=== PATIENT | female | born 1970 | race Caucasian/White ===

== ENCOUNTER 2017-01-21 01:23 | Emergency (ER) | payer MEDICARE, MEDICAID ==
[2017-01-21 02:15] LABS: BASOPHILS % (AUTO) 0.4 %; EOSINOPHILS # (AUTO) 0.1 10^3/uL (0.0-0.7); EOSINOPHILS % (AUTO) 0.8 %; HCT - HEMATOCRIT 31.1 % (37.0-47.0); HGB - HEMOGLOBIN 10.7 g/dL (12.0-16.0); LYMPHOCYTES # (AUTO) 2.1 10^3/uL (1.5-3.5); LYMPHOCYTES % (AUTO) 19.7 %; MEAN CORPUSCULAR HEMOGLOBIN 31.5 pg (27.0-31.0); MEAN CORPUSCULAR HGB CONC 34.3 g/dL (32.0-36.0); MEAN CORPUSCULAR VOLUME 91.7 fL (81.0-99.0); MEAN PLATELET VOLUME 6.6 fL (7.9-10.8); MONOCYTES # (AUTO) 0.5 10^3/uL (0.0-1.0); MONOCYTES % (AUTO) 4.4 %; NEUTROPHILS # (AUTO) 8.1 10^3/uL (1.5-6.6); NEUTROPHILS % (AUTO) 74.7 %; RED BLOOD COUNT 3.39 10^6/uL (4.20-5.40); RED CELL DISTRIBUTION WIDTH 13.2 % (12.0-15.0); UNCORRECTED WHITE BLOOD COUNT 10.8 x10^3/uL; WHITE BLOOD COUNT 10.8 x10^3/uL (4.8-10.8)
[2017-01-21 02:27] LABS: ALBUMIN/GLOBULIN RATIO 1.2 (1.0-2.2); BILIRUBIN,TOTAL 0.5 mg/dL (0.2-1.0); CALCIUM 8.5 mg/dL (8.5-10.3); CREATININE 0.9 mg/dL (0.4-1.0); POTASSIUM 3.5 mmol/L (3.5-5.0); TOTAL PROTEIN 6.4 g/dL (6.7-8.2)
--- NOTE | 2017-01-21 02:36 | XRAY Preliminary Report ---
Exam: XR CHEST 1 VIEW IMPRESSION: 1. Mild left basilar atelectasis or infiltrate. 2. Mild bronchial wall thickening. This can be seen with bronchitis or reactive airways disease. [facility] SITE ID: [id number]
--- NOTE | 2017-01-21 02:39 | XRAY Report ---
EXAM: CHEST RADIOGRAPHY EXAM DATE: 01/21/2017 02:21 AM. CLINICAL HISTORY: Cough, hemoptysis. COMPARISON: 01/03/2016. TECHNIQUE: 1 view. FINDINGS: Lungs/Pleura: Mild left basilar atelectasis or infiltrate. No pleural effusion seen. No pneumothorax. Mild bronchial wall thickening. Mediastinum: Within exam limitations, the cardiomediastinal contour is normal. Other: None. IMPRESSION: 1. Mild left basilar atelectasis or infiltrate. 2. Mild bronchial wall thickening. This can be seen with bronchitis or reactive airways disease. [facility] Referring Provider Line: [phone] SITE ID: [id number]
[2017-01-21] MEDS ORDERED: AZITHROMYCIN 250 MG TABLET PO STA (03:03)
[2017-01-21] MEDS ORDERED: BENZONATATE 100 MG CAPSULE PO STA (03:03)
--- NOTE | 2017-01-21 03:07 | ED Physician Documentation ---
PD HPI DYSPNEA - Stated complaint Stated Complaint: DIFF BREATHING,COUGHING BLOOD - Chief complaint Chief Complaint: Resp - History obtained from History obtained from: Patient - History of Present Illness Timing - onset: Today Timing - onset during: Exertion Timing - details: Abrupt onset Inciting event(s): URI Associated symptoms: Cough, Hemoptysis. No: Wheezing Similar symptoms before: Work up / diagnostics, Treatment Recently seen: Clinic - Additional information Additional information: Patient is a 46 year old female who has recently been diagnosed with bronchitis who is coming to the emergency department for hemoptysis. Patient states that today she had three episodes of coughing and she coughed up some blood with it. Patient does state that she has a history of blood clots in the distant past. Review of Systems Constitutional: denies: Fever, Chills Eyes: reports: Reviewed and negative Ears: denies: Loss of hearing, Ear pain Nose: reports: Congestion Throat: denies: Sore throat Cardiac: denies: Chest pain / pressure, Palpitations, Calf pain Respiratory: reports: Dyspnea, Cough, Wheezing GI: denies: Nausea, Vomiting : reports: Reviewed and negative Skin: denies: Rash, Lesions Musculoskeletal: denies: Neck pain, Back pain, Extremity pain Neurologic: denies: Generalized weakness, Focal weakness, Syncope Immunocompromised: denies: Immunocompromised PD PAST MEDICAL HISTORY - Past Medical History Past Medical History: Yes Cardiovascular: None Respiratory: Asthma, Pneumonia, Shortness of breath Neuro: Headache/migraine Endocrine/Autoimmune: None GI: GERD : None HEENT: None Psych: Anxiety, Panic attacks, Claustrophobia Musculoskeletal: Osteoarthritis, Chronic back pain Derm: Other - Past Surgical History Past Surgical History: Yes General: Other 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: 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 - Present Medications Home Medications: Ambulatory Orders Medication Instructions Recorded Confirmed oxyCODONE [Roxicodone] 30 mg PO QID PRN 01/30/15 01/04/16 Albuterol Sulfate [Proair Hfa 2 puffs INH Q4H PRN 01/04/16 01/04/16 Inhaler] Montelukast [Singulair] 10 mg PO DAILY 01/04/16 01/04/16 Morphine Sulfate [Ms Contin] 30 mg PO BID 01/04/16 01/04/16 Morphine Sulfate [Ms Contin] 60 mg PO BID 01/04/16 01/04/16 Albuterol 2.5 mg INH RTQ4H PRN #24 neb 01/05/16 Levofloxacin [Levaquin] 500 mg PO DAILY #5 tablet 01/05/16 Prednisone 20 mg PO DAILYWM #12 tablet 01/05/16 Azithromycin 250 mg PO DAILY #4 tablet 01/21/17 Benzonatate [Tessalon Perle] 100 mg PO TID #15 capsule 01/21/17 Codeine Phosphate/Guaifenesin 5 ml PO DAILY PRN #120 ml 01/21/17 [Guaifen-Codeine 100-10 mg/5 ml] - Allergies Allergies/Adverse Reactions: Allergies Allergy/AdvReac Type Severity Reaction Status Date / Time Iodinated Contrast- Oral and Allergy Severe Anaphylaxis Verified 01/03/16 14:59 IV Dye Penicillins Allergy Mild Rash Verified 01/03/16 09:01 - Social History Does the pt smoke?: Yes Smoking Status: Current every day smoker Does the pt drink ETOH?: Yes Does the pt have substance abuse?: No - Immunizations Immunizations are current?: Yes - POLST Patient has POLST: No PD ED PE NORMAL - General General: Alert and oriented X 3, Well developed/nourished - HEENT HEENT: Atraumatic, PERRL - Neck Neck: Supple, no meningeal sign, No JVD - Cardiac Cardiac: RRR, No murmur - Respiratory Respiratory: Clear bilaterally - Abdomen Abdomen: Soft - Derm Derm: Normal color, Warm and dry, No rash - Extremities Extremities: No deformity, Normal ROM s pain, No calf tenderness / cord - Neuro Neuro: Alert and oriented X 3, No motor deficit, No sensory deficit, Normal speech - Psych Psych: Normal mood, Normal affect Results - Vitals Vitals: Vital Signs - 24 hr 01/21/17 01:29 Temperature 36.3 C L Heart Rate 74 Respiratory 20 Rate Blood Pressure 138/72 H O2 Saturation 98 Oxygen O2 Source Room air - Labs Labs: Laboratory Tests 01/21/17 01/21/17 01/21/17 02:09 02:09 02:09 WBC 10.8 RBC 3.39 L Hgb 10.7 L Hct 31.1 L MCV 91.7 MCH 31.5 H MCHC 34.3 RDW 13.2 Plt Count 254 MPV 6.6 L Neut # 8.1 H Lymph # 2.1 Collin # 0.5 Eos # 0.1 Baso # 0.0 Absolute Nucleated RBC 0.00 Nucleated RBC % 0.0 D-Dimer 244.3 Sodium 135 Potassium 3.5 Chloride 98 L Carbon Dioxide 29 Anion Gap 8.0 BUN 22 H Creatinine 0.9 Estimated GFR (MDRD) 67 L Glucose 126 H Calcium 8.5 Total Bilirubin 0.5 AST 38 ALT 56 Alkaline Phosphatase 59 Troponin I Total Protein 6.4 L Albumin 3.5 Globulin 2.9 Albumin/Globulin Ratio 1.2 Lipase 13 L 01/21/17 02:09 WBC RBC Hgb Hct MCV MCH MCHC RDW Plt Count MPV Neut # Lymph # Collin # Eos # Baso # Absolute Nucleated RBC Nucleated RBC % D-Dimer Sodium Potassium Chloride Carbon Dioxide Anion Gap BUN Creatinine Estimated GFR (MDRD) Glucose Calcium Total Bilirubin AST ALT Alkaline Phosphatase Troponin I < 0.04 Total Protein Albumin Globulin Albumin/Globulin Ratio Lipase - Rads (name of study) chest x-ray Radiology: Final report received (atelectasis vs infiltrate) PD MEDICAL DECISION MAKING - ED course Complexity details: reviewed old records, reviewed results, re-evaluated patient , considered differential, d/w patient ED course: Patient was seen and examined at bedside. Patient could not be cleared for pe due to perc due to the hemoptysis and history of blood clots. labs were drawn. chest x-ray was performed and showed questionable pneumonia. Patient's d- dimer was normal for her age. Patient was started on azithromycin and was stable for discharge with outpatient follow up. Departure - Departure Disposition: 01 Home, Self Care Clinical Impression: Bronchitis Condition: Good Instructions: ED Bronchitis Asthmatic Follow-Up: Monika Lawson PA-C [Primary Care Provider] - Within 3 Days Prescriptions: Azithromycin 250 mg PO DAILY #4 tablet Benzonatate [Tessalon Perle] 100 mg PO TID #15 capsule Codeine Phosphate/Guaifenesin [Guaifen-Codeine 100-10 mg/5 ml] 5 ml PO DAILY PRN #120 ml PRN Reason: Cough Comments: Your chest x-ray today showed a possible pneumonia but otherwise your diagnostics were within normal limits. You had your first dose of antibiotics today and will need to take them for the next 4 days. You can take the cough medicine with codeine at night and the tessalon during the day. You should follow up with your doctor if your symptoms persist. You may return to the emergency department at any time for new, worsening or uncontrollable symptoms.
[2017-01-21] MEDS ORDERED: AZITHROMYCIN 250 MG TABLET PO ONE (03:13)
[2017-01-21] MEDS ORDERED: BENZONATATE 100 MG CAPSULE PO ONE (03:13)
[2017-01-21 03:19] VITALS: BP 130/68
== END 2017-01-21 03:20 | disposition home or self-care (01) ==
LOC: ED 01:23
DX: J40 Bronchitis, not specified as acute or chronic (principal); K21.9 Gastro-esophageal reflux disease without esophagitis; M19.90 Unspecified osteoarthritis, unspecified site; F17.200 Nicotine dependence, unspecified, uncomplicated
CPT/HCPCS: 36415; 71010; 80053; 83690; 84484; 85025; 85379; 99283; 99284; A9270

== ENCOUNTER 2017-05-18 20:04 | Emergency (ER) | payer MEDICARE, MEDICAID ==
[2017-05-18 20:11] VITALS: BP 144/98
--- NOTE | 2017-05-18 20:49 | ED Physician Documentation ---
History of Present Illness - Stated complaint Stated Complaint: L LEG PX-SWELLING - Chief complaint Chief Complaint: Ext Problem - History obtained from History obtained from: Patient - History of Present Illness Timing: Yesterday Pain level now: 1 Improved by: no ameliorating factors Worsened by: no exacerbating factors - Additonal information Additional information: c/o LLE swelling with mild pain, symptoms are from left knee and distally. denies trauma, denies h/o similar symptoms. she also denies dyspnea, chest pain Review of Systems Constitutional: denies: Fever Cardiac: denies: Chest pain / pressure Respiratory: denies: Dyspnea Musculoskeletal: reports: Extremity pain, Extremity swelling. 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 - Present Medications Home Medications: Ambulatory Orders Medication Instructions Recorded Confirmed oxyCODONE [Roxicodone] 30 mg PO QID PRN 01/30/15 01/04/16 Albuterol Sulfate [Proair Hfa 2 puffs INH Q4H PRN 01/04/16 01/04/16 Inhaler] Montelukast [Singulair] 10 mg PO DAILY 01/04/16 01/04/16 Morphine Sulfate [Ms Contin] 30 mg PO BID 01/04/16 01/04/16 Morphine Sulfate [Ms Contin] 60 mg PO BID 01/04/16 01/04/16 Albuterol 2.5 mg INH RTQ4H PRN #24 neb 01/05/16 Levofloxacin [Levaquin] 500 mg PO DAILY #5 tablet 01/05/16 predniSONE [Prednisone] 20 mg PO DAILYWM #12 tablet 01/05/16 Azithromycin 250 mg PO DAILY #4 tablet 01/21/17 Benzonatate [Tessalon Perle] 100 mg PO TID #15 capsule 01/21/17 Codeine Phosphate/Guaifenesin 5 ml PO DAILY PRN #120 ml 10/22/17 [Guaifen-Codeine 100-10 mg/5 ml] - Allergies Allergies/Adverse Reactions: Allergies Allergy/AdvReac Type Severity Reaction Status Date / Time Iodinated Contrast- Oral and Allergy Severe Anaphylaxis Verified 05/18/17 20:11 IV Dye Penicillins Allergy Mild Rash Verified 05/18/17 20:11 - Social History Does the pt smoke?: Yes Smoking Status: Current every day smoker Does the pt drink ETOH?: Yes Does the pt have substance abuse?: No - Immunizations Immunizations are current?: Yes - POLST Patient has POLST: No PD ED PE NORMAL - Vitals Vital signs reviewed: Yes - General General: Alert and oriented X 3, No acute distress, Well developed/nourished - Respiratory Respiratory: No respiratory distress - Derm Derm: Normal color, Warm and dry, No rash PD ED PE EXPANDED - Extremities Extremities: Pedal edema L (1+ pitting edema left knee and distally. 2+ left DP and PT pulses, brisk capillary refill in foot/toes on left) Results - Vitals Vitals: Vital Signs - 24 hr 05/18/17 05/18/17 05/19/17 20:09 23:51 00:06 Temperature 36.3 C L Heart Rate 88 80 Respiratory 20 16 17 Rate Blood Pressure 144/98 H O2 Saturation 97 99 Oxygen O2 Source Room air - Labs Labs: Laboratory Tests 05/18/17 05/18/17 21:10 21:10 PT 11.4 INR 1.0 APTT 26.4 Sodium 137 Potassium 3.8 Chloride 99 L Carbon Dioxide 26 Anion Gap 12.0 BUN 11 Creatinine 0.8 Estimated GFR (MDRD) 77 L Glucose 106 H Calcium 8.8 - Rads (name of study) LLE US doppler Radiology: Prelim report reviewed, See rad report PD MEDICAL DECISION MAKING - ED course Complexity details: reviewed results, re-evaluated patient, considered differential, d/w patient Departure - Departure Disposition: 01 Home, Self Care Clinical Impression: Peripheral edema Condition: Good Instructions: ED Leg Swelling Unilateral Follow-Up: Monika Lawson PA-C [Primary Care Provider] - Within 1 week Discharge Date/Time: 05/19/17 00:08
[2017-05-18 21:20] LABS: PT - PROTHROMBIN TIME 11.4 secs (9.9-12.6)
[2017-05-18 21:26] LABS: CALCIUM 8.8 mg/dL (8.5-10.3); CREATININE 0.8 mg/dL (0.4-1.0)
--- NOTE | 2017-05-18 23:05 | Ultrasound Report ---
EXAM: LEFT LOWER EXTREMITY VENOUS ULTRASOUND EXAM DATE: 05/18/2017 10:36 PM. CLINICAL HISTORY: LLE swelling. COMPARISON: None. TECHNIQUE: Real-time sonographic vascular imaging was performed by the material handler loader through the lower extremity utilizing both color-flow and Doppler spectral analysis. Multiple medical collections representative static christopher ges were saved for review. FINDINGS: Common Femoral Vein (CFV): Normal. CFV-GSV Junction: Normal. Profunda Femoral Vein (PFV): Normal. Femoral Vein (FV) Prox: Normal. Femoral Vein (FV) Mid: Normal. Femoral Vein (FV) Dist: Normal. Popliteal Vein: Normal. Posterior Tibial Veins: Normal. Peroneal Veins: Normal. Other: None. IMPRESSION: No evidence for deep venous thrombosis. [facility] Referring Provider Line: [phone] SITE ID: [id number]
--- NOTE | 2017-05-18 23:05 | Ultrasound Preliminary Report ---
Exam: US DUPLEX EXT VEINS LEFT IMPRESSION: No evidence for deep venous thrombosis. [facility] SITE ID: [id number]
== END 2017-05-19 00:08 | disposition home or self-care (01) ==
LOC: ED 20:04
DX: R60.0 Localized edema (principal); J45.909 Unspecified asthma, uncomplicated; F17.200 Nicotine dependence, unspecified, uncomplicated
CPT/HCPCS: 36415; 80048; 85610; 85730; 99283

== ENCOUNTER 2017-10-27 20:13 | Emergency (ER) | payer MEDICARE, MEDICAID ==
[2017-10-27] MEDS ORDERED: ONDANSETRON 4 MG/2 ML VIAL IVP STA (20:30)
[2017-10-27] MEDS ORDERED: LORazepam 2 MG/ML VIAL IVP STA (20:30)
--- NOTE | 2017-10-27 20:40 | ED Physician Documentation ---
PD HPI DYSPNEA - Stated complaint Stated Complaint: SOA/BILAT FEET SWELLING - Chief complaint Chief Complaint: Resp - History of Present Illness Timing - onset: Other (47-year-old woman with history of asthma and some sort of chronic rash on her feet, also chronic back pain maintained on morphine extended release 30 mg twice daily and oxycodone 10 mg 7 times a day. She has had increasing pedal edema over the last days, said months ago she had a DVT scan of the left lower extremity which was negative but now both legs are swollen which actually makes the rash on her feet more painful than normal. She also has more shortness of breath than normal, but does not feel too much more wheezy than normal. She is a heavy smoker and used her inhaler just prior to arrival. She denies any chest pain. There is no possibility of between lack of intercourse and tubal ligation.) Review of Systems Ten Systems: 10 systems reviewed and negative Constitutional: reports: Fatigue. denies: Fever, Chills Cardiac: reports: Pedal edema, Calf pain. 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 - Present Medications Home Medications: Ambulatory Orders Medication Instructions Recorded Confirmed oxyCODONE [Roxicodone] 10 mg PO QID PRN 01/30/15 01/04/16 Albuterol Sulfate [Proair Hfa 2 puffs INH Q4H PRN 01/04/16 01/04/16 Inhaler] Morphine Sulfate [Ms Contin] 30 mg PO BID 01/04/16 01/04/16 Alprazolam [Xanax] 0.5 mg PO TID PRN 10/27/17 10/27/17 Fluticasone/Salmeterol [Advair 2 puffs INH DAILY 10/27/17 10/27/17 500-50 Diskus] Furosemide [Lasix] 20 mg PO DAILY #7 tablet 10/27/17 Potassium Chloride 10 meq PO DAILY #7 tablet.er 10/27/17 - Allergies Allergies/Adverse Reactions: Allergies Allergy/AdvReac Type Severity Reaction Status Date / Time Iodinated Contrast- Oral and Allergy Severe Anaphylaxis Verified 05/18/17 20:11 IV Dye Penicillins Allergy Mild Rash Verified 05/18/17 20:11 - Social History Does the pt smoke?: Yes Smoking Status: Current every day smoker Does the pt drink ETOH?: Yes Does the pt have substance abuse?: No - Immunizations Immunizations are current?: Yes - POLST Patient has POLST: No PD ED PE NORMAL - Vitals Vital signs reviewed: Yes - General General: Alert and oriented X 3, No acute distress - HEENT HEENT: PERRL, EOMI - Neck Neck: Supple, no meningeal sign, No bony TTP - Cardiac Cardiac: RRR, No murmur - Respiratory Respiratory: No respiratory distress, Other (Rhonchorous and wheezy throughout, nonlabored) - Abdomen Abdomen: Normal bowel sounds, Soft, Non tender - Back Back: No CVA TTP, No spinal TTP - Extremities Extremities: Other (Bilateral pitting pedal edema up to mid thigh, she has an odd rash on the top of the feet, it looks more fungal than anything to me with central clearing and multiple wax, she says it is not fungal. She says it is autoimmune has tried dapsone in the past and steroids do not help.) - Neuro Neuro: Alert and oriented X 3, Normal speech - Psych Psych: Normal mood, Normal affect Results - Vitals Vitals: Vital Signs - 24 hr 10/27/17 20:17 Temperature 36.1 C L Heart Rate 80 Respiratory 19 Rate Blood Pressure 125/83 H O2 Saturation 98 Oxygen O2 Source Room air - EKG (time done) 2036 Rate: Rate (enter#) (75) Rhythm: NSR Fluker: Normal Intervals: Normal RI QRS: Low voltage Ischemia: Non specific changes (sub-mm ZOE inferior, concave, nondiagnostic, no priors.) Computer interpretation: Agree with computer - Labs Labs: Laboratory Tests 10/27/17 10/27/17 10/27/17 20:40 20:40 20:40 WBC 6.1 RBC 4.00 L Hgb 12.8 Hct 37.2 MCV 93.0 MCH 32.0 H MCHC 34.4 RDW 13.1 Plt Count 267 MPV 7.5 L Neut # (Auto) 3.4 Lymph # (Auto) 2.1 Fleming # (Auto) 0.5 Eos # (Auto) 0.2 Baso # (Auto) 0.0 Absolute Nucleated RBC 0.00 Nucleated RBC % 0.0 Sodium 138 Potassium 3.8 Chloride 100 L Carbon Dioxide 30 Anion Gap 8.0 BUN 11 Creatinine 0.9 Estimated GFR (MDRD) 67 L Glucose 101 H Calcium 9.0 Total Bilirubin 0.6 AST 35 ALT 49 Alkaline Phosphatase 58 Troponin I < 0.04 Total Protein 6.8 Albumin 3.5 Globulin 3.3 Albumin/Globulin Ratio 1.1 Lipase 20 L - Rads (name of study) 2v chest Radiology: EMP read contemporaneously (normal) BLE DVT scan Radiology: Prelim report reviewed (no dvt) PD MEDICAL DECISION MAKING - ED course ED course: 47-year-old woman bilateral pedal edema in the setting of underlying asthma and some sort of unclear rash that has been treated by dermatology in the past. I presume some sort of autoimmune issue given that she, but I am not sure. Either way that is a chronic issue. She presents with bilateral pedal edema and pain from same as well as shortness of breath. She is not wheezing. Differential diagnosis would include renal failure, congestive heart failure, DVT, or other nonspecific fluid retention. Workup was undertaken and there is no evidence of cardiac dysfunction, DVT, or renal dysfunction. She was treated with Lasix here. She was having a lot of anxiety which treated with initially with Ativan and Zofran for Nausea which was also followed by Phenergan. She had a lot of pain from the ultrasound and was given a dose of morphine which is not unreasonable given that she is probably laid on her chronic pain medications which are fairly high in dose anyway.The pedal edema was treated with a dose of Lasix here. Primary care follow-up was advised. - Sepsis Event Vital Signs: Vital Signs - 24 hr 10/27/17 20:17 Temperature 36.1 C L Heart Rate 80 Respiratory 19 Rate Blood Pressure 125/83 H O2 Saturation 98 Oxygen O2 Source Room air Departure - Departure Disposition: 01 Home, Self Care Clinical Impression: Peripheral edema Back pain Qualifiers: Back pain location: low back pain Chronicity: chronic Back pain laterality: bilateral Sciatica presence: unspecified whether sciatica present Qualified Code (s): M54.5 - Low back pain; G89.29 - Other chronic pain; G89.29 - Other chronic pain Dyspnea Qualifiers: Dyspnea type: dyspnea on exertion Qualified Code(s): R06.09 - Other forms of dyspnea Condition: Good Record reviewed to determine appropriate education?: Yes Instructions: ED Dyspnea Shortness of Breath, ED Edema Legs Bilateral Prescriptions: Furosemide [Lasix] 20 mg PO DAILY #7 tablet Potassium Chloride 10 meq PO DAILY #7 tablet.er Comments: Continue your current medications. On any day that you feel like you need to take some water off your legs you can take a dose of the Lasix, on any day that you take the Lasix, take the potassium supplement. Call your doctor on Sunday to arrange an expedited follow-up appointment. Return if worse or if new symptoms develop.
[2017-10-27 20:52] LABS: BASOPHILS % (AUTO) 0.6 %; EOSINOPHILS # (AUTO) 0.2 10^3/uL (0.0-0.7); EOSINOPHILS % (AUTO) 3.5 %; HGB - HEMOGLOBIN 12.8 g/dL (12.0-16.0); LYMPHOCYTES # (AUTO) 2.1 10^3/uL (1.5-3.5); LYMPHOCYTES % (AUTO) 33.5 %; MEAN CORPUSCULAR HGB CONC 34.4 g/dL (32.0-36.0); MEAN PLATELET VOLUME 7.5 fL (7.9-10.8); MONOCYTES # (AUTO) 0.5 10^3/uL (0.0-1.0); MONOCYTES % (AUTO) 7.6 %; NEUTROPHILS # (AUTO) 3.4 10^3/uL (1.5-6.6); NEUTROPHILS % (AUTO) 54.8 %; PLT - PLATELET COUNT 267 10^3/uL (130-450); RED CELL DISTRIBUTION WIDTH 13.1 % (12.0-15.0); WHITE BLOOD COUNT 6.1 x10^3/uL (4.8-10.8)
[2017-10-27 21:02] LABS: ALBUMIN 3.5 g/dL (3.2-5.5); ALBUMIN/GLOBULIN RATIO 1.1 (1.0-2.2); BILIRUBIN,TOTAL 0.6 mg/dL (0.2-1.0); CREATININE 0.9 mg/dL (0.4-1.0); TOTAL PROTEIN 6.8 g/dL (6.7-8.2)
--- NOTE | 2017-10-27 21:04 | XRAY Report ---
Procedure Date: 10/27/2017 Accession Number: [id number] / [id number] Procedure: XR - Chest 2 View X-Ray CPT Code: 92014 FULL RESULT: EXAM: CHEST RADIOGRAPHY EXAM DATE: 10/27/2017 08:49 PM. CLINICAL HISTORY: Dyspnea. COMPARISON: 01/31/2016 and 01/03/2016. TECHNIQUE: 2 views. FINDINGS: Lungs/Pleura: No focal opacities evident. No pleural effusion. No pneumothorax. Normal volumes. Mediastinum: Heart and mediastinal contours are unremarkable. Other: None. IMPRESSION: Normal 2-view chest radiography. [facility]
[2017-10-27] MEDS ORDERED: FUROSEMIDE 20 MG/2 ML VIAL IVP STA (21:31)
[2017-10-27] MEDS ORDERED: PROMETHAZINE INJ 12.5 MG in SODIUM CHLORIDE 0.9% 50 ML IV STA (21:31)
[2017-10-27] MEDS ORDERED: MORPHINE 10 MG/ML VIAL IVP STA (22:53)
--- NOTE | 2017-10-27 23:00 | Ultrasound Report ---
Procedure Date: 10/27/2017 Accession Number: [id number] / [id number] Procedure: US - Duplex Ext Veins Bilateral CPT Code: FULL RESULT: EXAM: BILATERAL LOWER EXTREMITY VENOUS ULTRASOUND EXAM DATE: 10/27/2017 10:44 PM. CLINICAL HISTORY: Leg swelling. COMPARISON: None. TECHNIQUE: Real-time sonographic vascular imaging was performed by the child support specialist through the lower extremities utilizing both color-flow and Doppler spectral analysis. Multiple tour sales representative static images were saved for review. FINDINGS: Right: Common Femoral Vein (CFV): Normal. CFV-GSV Junction: Normal. Profunda Femoral Vein (PFV): Normal. Femoral Vein (FV) Prox: Normal. Femoral Vein (FV) Mid: Normal. Femoral Vein (FV) Dist: Normal. Popliteal Vein: Normal. Posterior Tibial Veins: Normal. Peroneal Veins: Normal. Left: Common Femoral Vein (CFV): Normal. CFV-GSV Junction: Normal. Profunda Femoral Vein (PFV): Normal. Femoral Vein (FV) Prox: Normal. Femoral Vein (FV) Mid: Normal. Femoral Vein (FV) Dist: Normal. Popliteal Vein: Normal. Posterior Tibial Veins: Normal. Peroneal Veins: Normal. Other: Veins are suboptimally seen due to edema. Left popliteal fossa cyst measuring 4.5 x 1.1 x 1.2 cm. IMPRESSION: 1. No evidence for deep venous thrombosis bilaterally. 2. Left popliteal fossa cyst measuring 4.5 x 1.1 x 1.2 cm. [facility]
[2017-10-27 23:48] VITALS: BP 138/82
== END 2017-10-27 23:59 | disposition home or self-care (01) ==
LOC: ED 20:13
DX: R60.9 Edema, unspecified (principal); M54.5 Low back pain; G89.29 Other chronic pain; R06.09 Other forms of dyspnea; Z79.891 Long term (current) use of opiate analgesic
CPT/HCPCS: 36415; 71046; 80053; 83690; 84484; 85025; 93005; 93970; 96365; 96375; 99283; 99284; J2060; J7040

== ENCOUNTER 2018-01-10 11:19 | Emergency (ER) | payer MEDICARE, MEDICAID ==
--- NOTE | 2018-01-10 13:03 | ED Physician Documentation ---
PD HPI NVD - Stated complaint Stated Complaint: VOMITING/ANXIETY - Chief complaint Chief Complaint: Abd Pain - History obtained from History obtained from: Patient - History of Present Illness Timing - onset: Today Timing - duration: Days (1) Timing - details: Abrupt onset (onset of nausea and vomiting couple hours after starting Clindamycin for dental infection last evening. Persistent N/V into today. Unable to take usual pain meds today as well, so hurting all over, loreto in back.) Associated symptoms: Abdominal pain (upper abd), Loss of appetite. No: Fever, Near syncope / syncope Contributing factors: Recent antibiotics (clindamycin yesterday for dental infection). No: Sick contact, Bad food Improved by: No: Eating, Vomiting Worsened by: Eating Similar symptoms before: Has not had sx before Recently seen: Clinic (for tooth pain, and Rx Clindamycin.) Review of Systems Constitutional: reports: Myalgias. denies: Fever, Chills Nose: denies: Rhinorrhea / runny nose, Congestion Throat: denies: Sore throat Respiratory: denies: Cough GI: reports: Abdominal Pain, Nausea, Vomiting. denies: Diarrhea, Hematemesis, Bloody / black stool : denies: Dysuria, Frequency Skin: denies: Rash Musculoskeletal: reports: Back pain (chronic). 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: Tubal ligation - Present Medications Home Medications: Ambulatory Orders Medication Instructions Recorded Confirmed oxyCODONE [Roxicodone] 10 mg PO QID PRN 01/30/15 01/04/16 Albuterol Sulfate [Proair Hfa 2 puffs INH Q4H PRN 01/04/16 01/04/16 Inhaler] Morphine Sulfate [Ms Contin] 30 mg PO BID 01/04/16 01/04/16 Alprazolam [Xanax] 0.5 mg PO TID PRN 10/27/17 10/27/17 Fluticasone/Salmeterol [Advair 2 puffs INH DAILY 10/27/17 10/27/17 500-50 Diskus] Furosemide [Lasix] 20 mg PO DAILY #7 tablet 10/27/17 Potassium Chloride 10 meq PO DAILY #7 tablet.er 10/27/17 Cephalexin [Keflex] 500 mg PO TID #20 capsule 01/10/18 Ondansetron Odt [Zofran] 4 mg TL Q6H PRN #15 tablet 01/10/18 - Allergies Allergies/Adverse Reactions: Allergies Allergy/AdvReac Type Severity Reaction Status Date / Time Iodinated Contrast- Oral and Allergy Severe Anaphylaxis Verified 01/10/18 11:26 IV Dye Penicillins Allergy Mild Rash Verified 01/10/18 11:26 - Social History Does the pt smoke?: Yes Smoking Status: Current every day smoker Does the pt drink ETOH?: Yes Does the pt have substance abuse?: No - Immunizations Immunizations are current?: Yes - POLST Patient has POLST: No PD ED PE NORMAL - Vitals Vital signs reviewed: Yes - General General: Alert and oriented X 3, Well developed/nourished, Other (active emesis in ER. Appears uncomfortable. ) - HEENT HEENT: Pharynx benign. No: Dentition benign (right upper tooth with caries and some mild gum swelling. No fluctuance. ) - Neck Neck: Supple, no meningeal sign, No adenopathy - Cardiac Cardiac: RRR, No murmur - Respiratory Respiratory: Clear bilaterally - Abdomen Abdomen: Normal bowel sounds, Soft, Non distended, No organomegaly, Other (Tender epigastric area, no general guarding nor percussion tender. ) - Female Female : Deferred - Rectal Rectal: Deferred - Back Back: No CVA TTP - Derm Derm: Normal color, Warm and dry - Neuro Neuro: Alert and oriented X 3, No motor deficit, Normal speech Results - Vitals Vitals: Vital Signs - 24 hr 01/10/18 11:23 Temperature 36.5 C Heart Rate 78 Respiratory 20 Rate Blood Pressure 102/44 L O2 Saturation 98 Oxygen O2 Source Room air PD MEDICAL DECISION MAKING - ED course Complexity details: reviewed results, re-evaluated patient (improved with fluids and antiemetics. Gave IV pain meds for general pains and back pain. She had not had her MS 30 mg dose this morning, and so is catching up with even that. ), considered differential, d/w patient Departure - Departure Disposition: 01 Home, Self Care Clinical Impression: Medication side effect Nausea and vomiting Qualifiers: Vomiting type: unspecified Vomiting Intractability: non-intractable Qualified Code(s): R11.2 - Nausea with vomiting, unspecified Condition: Stable Record reviewed to determine appropriate education?: Yes Instructions: ED Nausea Vomiting Follow-Up: Destin Verma DO [Primary Care Provider] - Prescriptions: Cephalexin [Keflex] 500 mg PO TID #20 capsule Ondansetron Odt [Zofran] 4 mg TL Q6H PRN #15 tablet PRN Reason: Nausea / Vomiting Comments: Continue usual medications. Ondansetron if needed for nausea. Stop the recent clindamycin for the dental infection as this likely was causing your nausea and vomiting. Your given a dose IV antibiotics today so you do not need to take any new antibiotic until tomorrow. At that point start cephalexin 3 times a day for a week for the dental infection. Tylenol if needed for pains. Discharge Date/Time: 01/10/18 16:26
[2018-01-10] MEDS ORDERED: SODIUM CHLORIDE 0.9% 1,000 ML IV ONE ×2 (13:17)
[2018-01-10] MEDS ORDERED: MORPHINE 10 MG/ML VIAL IVP STA ×2 (13:17→14:30)
[2018-01-10] MEDS ORDERED: ONDANSETRON 4 MG/2 ML VIAL IVP STA (13:17)
[2018-01-10] MEDS ORDERED: FAMOTIDINE 20 MG/2 ML VIAL IVP STA (13:17)
[2018-01-10] MEDS ORDERED: HALOPERIDOL 5 MG/ML VIAL IVP ONE (14:30)
[2018-01-10 14:40] LABS: BASOPHILS % (AUTO) 0.4 %; HGB - HEMOGLOBIN 15.7 g/dL (12.0-16.0); LYMPHOCYTES # (AUTO) 0.7 10^3/uL (1.5-3.5); LYMPHOCYTES % (AUTO) 6.4 %; MEAN CORPUSCULAR HEMOGLOBIN 30.6 pg (27.0-31.0); MEAN CORPUSCULAR HGB CONC 33.1 g/dL (32.0-36.0); MEAN CORPUSCULAR VOLUME 92.4 fL (81.0-99.0); MEAN PLATELET VOLUME 7.2 fL (7.9-10.8); MONOCYTES # (AUTO) 0.1 10^3/uL (0.0-1.0); MONOCYTES % (AUTO) 1.1 %; NEUTROPHILS # (AUTO) 10.6 10^3/uL (1.5-6.6); NEUTROPHILS % (AUTO) 92.1 %; PLT - PLATELET COUNT 306 10^3/uL (130-450); RED BLOOD COUNT 5.11 10^6/uL (4.20-5.40); RED CELL DISTRIBUTION WIDTH 13.2 % (12.0-15.0); WHITE BLOOD COUNT 11.5 x10^3/uL (4.8-10.8)
[2018-01-10 14:49] LABS: ALBUMIN 4.5 g/dL (3.2-5.5); ALBUMIN/GLOBULIN RATIO 1.3 (1.0-2.2); BILIRUBIN,TOTAL 0.5 mg/dL (0.2-1.0); CREATININE 1.1 mg/dL (0.4-1.0)
[2018-01-10] MEDS ORDERED: cefTRIAXone 500 MG VIAL IVP STA (15:18)
[2018-01-10] MEDS ORDERED: HYDROmorphone 2 MG/ML VIAL IVP STA (15:38)
[2018-01-10 16:27] VITALS: BP 111/44
== END 2018-01-10 16:26 | disposition home or self-care (01) ==
LOC: ED 11:19
DX: T36.8X1A Poisoning by other systemic antibiotics, accidental (unintentional), initial encounter (principal); R11.2 Nausea with vomiting, unspecified; F17.200 Nicotine dependence, unspecified, uncomplicated
CPT/HCPCS: 36415; 80053; 83690; 85025; 96361; 96374; 96375; 96376; 99283; 99284; J1170

== ENCOUNTER 2018-02-24 10:15 | Emergency (ER) | payer MEDICARE, MEDICAID ==
[2018-02-24] MEDS ORDERED: oxyCODONE 5 MG TABLET PO STA (11:43)
[2018-02-24] MEDS ORDERED: ALBUTEROL NEB 2.5 MG/3 ML INH STA ×2 (11:43→12:57)
[2018-02-24] MEDS ORDERED: DEXAMETHASONE 10 MG/ML VIAL PO STA (11:43)
--- NOTE | 2018-02-24 11:54 | ED Physician Documentation ---
History of Present Illness - Stated complaint Stated Complaint: CONGESTION/COUGH - Chief complaint Chief Complaint: Resp - Additonal information Additional information: hx from pt 47 f hx asthma recent productive cough wheezing SOA feels like she has pna no fever but has had pna s fever before no leg swelling no long distance travel using [employer] q 1h at home all the coughing has worsened her chronic LBP and she did not take her AM long acting morphine Review of Systems Constitutional: denies: Fever, Chills Cardiac: reports: Chest pain / pressure Respiratory: reports: Dyspnea, Cough GI: denies: Abdominal Pain, Nausea, Vomiting Musculoskeletal: denies: Extremity swelling Endocrine: denies: Easy bruising / bleeding Immunocompromised: denies: Immunocompromised PD PAST MEDICAL HISTORY - Past Medical History Past Medical History: Yes Cardiovascular: None Respiratory: Asthma, Pneumonia, Shortness of breath Neuro: None Endocrine/Autoimmune: None GI: GERD UNDERGRADUATE INTERN: None : None HEENT: None Psych: Anxiety, Panic attacks, Claustrophobia Musculoskeletal: Osteoarthritis, Chronic back pain Derm: Other - Past Surgical History Past Surgical History: Yes General: Other Ortho: Carpal Tunnel surgery, Spine surgery /UNDERGRADUATE INTERN: Tubal ligation - Present Medications Home Medications: Ambulatory Orders Medication Instructions Recorded Confirmed oxyCODONE [Roxicodone] 10 mg PO QID PRN 01/30/15 01/04/16 Albuterol Sulfate [Proair Hfa 2 puffs INH Q4H PRN 01/04/16 01/04/16 Inhaler] Morphine Sulfate [Ms Contin] 30 mg PO BID 01/04/16 01/04/16 Alprazolam [Xanax] 0.5 mg PO TID PRN 10/27/17 10/27/17 Fluticasone/Salmeterol [Advair 2 puffs INH DAILY 10/27/17 10/27/17 500-50 Diskus] Albuterol 2.5 mg INH Q4H PRN #30 neb 02/24/18 Albuterol Sulfate [Proair Hfa 2 puffs INH Q4H PRN #1 inhaler 02/24/18 Inhaler] Benzonatate [Tessalon Perle] 100 mg PO TID PRN #20 capsule 02/24/18 guaiFENesin/DEXTROMETHORPHAN 10 ml PO Q6H PRN #120 ml 11/25/18 [Robitussin Dm] predniSONE [Deltasone] 60 mg PO DAILY 5 Days #15 tablet 02/24/18 - Allergies Allergies/Adverse Reactions: Allergies Allergy/AdvReac Type Severity Reaction Status Date / Time Iodinated Contrast- Oral and Allergy Severe Anaphylaxis Verified 01/10/18 11:26 IV Dye Penicillins Allergy Mild Rash Verified 01/10/18 11:26 - Social History Does the pt smoke?: Yes Smoking Status: Current every day smoker Does the pt drink ETOH?: No Does the pt have substance abuse?: No Substance Use and Type: Marijuana - Immunizations Immunizations are current?: Yes - POLST Patient has POLST: No PD ED PE NORMAL - Vitals Vital signs reviewed: Yes - Neck Neck: Supple, no meningeal sign - Cardiac Cardiac: RRR - Respiratory Respiratory: Other (ronchi and wheeze jessica) - Abdomen Abdomen: Soft, Non tender - Derm Derm: Normal color - Extremities Extremities: No edema, No calf tenderness / cord - Neuro Neuro: Alert and oriented X 3 Eye Opening: Spontaneous Motor: Obeys Commands Verbal: Oriented GCS Score: 15 Results - Vitals Vitals: Vital Signs - 24 hr 02/24/18 02/24/18 02/24/18 10:22 12:30 13:20 Temperature 36.6 C Heart Rate 57 L 62 77 Respiratory 20 16 18 Rate Blood Pressure 113/82 H 109/67 O2 Saturation 97 98 02/24/18 02/24/18 13:25 13:50 Temperature 36.4 C L Heart Rate 78 82 Respiratory 16 24 Rate Blood Pressure 137/62 H O2 Saturation 96 Oxygen O2 Source Room air - Labs Labs: Laboratory Tests 02/24/18 12:04 Influenza A (Rapid) Negative Influenza B (Rapid) Negative PD MEDICAL DECISION MAKING - ED course ED course: after steroids and 6 nebs pt is clear Departure - Departure Disposition: 01 Home, Self Care Clinical Impression: Asthma exacerbation Qualifiers: Asthma severity: severe Asthma persistence: unspecified Qualified Code(s): J45.901 - Unspecified asthma with (acute) exacerbation Condition: Good Instructions: ED Bronchitis Asthmatic Prescriptions: Albuterol 2.5 mg INH Q4H PRN #30 neb PRN Reason: Wheezing Albuterol Sulfate [Proair Hfa Inhaler] 2 puffs INH Q4H PRN #1 inhaler PRN Reason: Shortness Of Air/Wheezing Benzonatate [Tessalon Perle] 100 mg PO TID PRN #20 capsule PRN Reason: Cough guaiFENesin/DEXTROMETHORPHAN [Robitussin Dm] 10 ml PO Q6H PRN #120 ml PRN Reason: Cough predniSONE [Deltasone] 60 mg PO DAILY 5 Days #15 tablet Comments: The xray does not show pneumonia and your flu swab was negative So this is likely a viral process aggravating your asthma Recommend taking a steroid for 5 days, using your albuterol every 4 h for the next 3 days then as needed and cough medication as needed Avoid smoke Follow up with your PMD for a recheck this week Return if worse Forms: Activity restrictions
--- NOTE | 2018-02-24 12:04 | XRAY Report ---
Reason: cough Procedure Date: 02/24/2018 Accession Number: [id number] / [id number] Procedure: XR - Chest 2 View X-Ray CPT Code: 31905 FULL RESULT: EXAM: CHEST RADIOGRAPHY EXAM DATE: 02/24/2018 11:54 AM. CLINICAL HISTORY: Cough. COMPARISON: CHEST 2 VIEW 10/27/2017 8:44 PM CHEST 2 VIEW PA/LAT 01/03/2016 10:11 AM. TECHNIQUE: 2 views. FINDINGS: Lungs/Pleura: No focal opacities evident. No pleural effusion. No pneumothorax. Normal volumes. Mediastinum: Heart and mediastinal contours are unremarkable. Other: There are mild degenerative disk changes of the thoracic spine. IMPRESSION: No focal pulmonary consolidation. No acute cardiopulmonary abnormality. RADIA
[2018-02-24 13:51] VITALS: BP 137/62
== END 2018-02-24 14:34 | disposition home or self-care (01) ==
LOC: ED 10:15
DX: J45.901 Unspecified asthma with (acute) exacerbation (principal); F17.200 Nicotine dependence, unspecified, uncomplicated
CPT/HCPCS: 71046; 87275; 87276; 94640; 99283; A9270

== ENCOUNTER 2018-09-15 19:54 | Outpatient (CLI) | payer MEDICAID, MEDICARE | END 2018-09-15 19:55 | disposition critical access hospital (66) | LOC: EMS 19:54 | PROVIDERS: ATTEND Surgery | DX: R45.89 Other symptoms and signs involving emotional state (principal); F41.9 Anxiety disorder, unspecified | CPT/HCPCS: A0425; A0429 ==

== ENCOUNTER 2018-09-15 20:13 | Emergency (ER) | payer MEDICAID, MEDICARE ==
--- NOTE | 2018-09-15 21:17 | ED Physician Documentation ---
PD HPI MHE - Stated complaint Stated Complaint: SI, ANXIETY - Chief complaint Chief Complaint: MHE - History obtained from History obtained from: Patient - History of Present Illness Primary symptom: Suicidal ideation, Anxiety (ran out of her Xanax few days ago (gets 42 every 2 weeks, but was taking more than 3 daily). Feeling more stressed recently. Suicidal ideation but not wanting to hurt herself as she says she had her daughter (Alicia) to take care of.). No: Suicide attempt Timing - onset: How many days ago (last coule days, having worse anxiety and tearfulness.) Contributing factors: Family, Out of meds Similar symptoms before: Diagnosis (depression, anxiety, chronic back pain) Recently seen: Clinic Review of Systems Constitutional: reports: Fatigue. denies: Fever, Chills, Myalgias Nose: denies: Rhinorrhea / runny nose, Congestion Throat: denies: Sore throat Respiratory: denies: Cough GI: denies: Nausea, Vomiting, Diarrhea Musculoskeletal: reports: Back pain (chronic) Psychiatric: reports: Depressed, Suicidal (ideation but no attempt. no plan.), Anxiety, Insomnia. 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 - Present Medications Home Medications: Ambulatory Orders Medication Instructions Recorded Confirmed oxyCODONE [Roxicodone] 10 mg PO QID PRN 01/30/15 01/04/16 Albuterol Sulfate [Proair Hfa 2 puffs INH Q4H PRN 01/04/16 01/04/16 Inhaler] Morphine Sulfate [Ms Contin] 30 mg PO BID 01/04/16 01/04/16 Alprazolam [Xanax] 0.5 mg PO TID PRN 10/27/17 10/27/17 Fluticasone/Salmeterol [Advair 2 puffs INH DAILY 10/27/17 10/27/17 500-50 Diskus] Albuterol 2.5 mg INH Q4H PRN #30 neb 02/24/18 Albuterol Sulfate [Proair Hfa 2 puffs INH Q4H PRN #1 inhaler 02/24/18 Inhaler] Benzonatate [Tessalon Perle] 100 mg PO TID PRN #20 capsule 02/24/18 guaiFENesin/DEXTROMETHORPHAN 10 ml PO Q6H PRN #120 ml 02/24/18 [Robitussin Dm] predniSONE [Deltasone] 60 mg PO DAILY 5 Days #15 tablet 02/24/18 ALPRAZolam [Alprazolam] 0.5 mg PO TID PRN #15 tablet 09/15/18 - Allergies Allergies/Adverse Reactions: Allergies Allergy/AdvReac Type Severity Reaction Status Date / Time Iodinated Contrast- Oral and Allergy Severe Anaphylaxis Verified 09/15/18 20:25 IV Dye Penicillins Allergy Mild Rash Verified 09/15/18 20:25 - Social History Does the pt smoke?: Yes Smoking Status: Current every day smoker Does the pt drink ETOH?: No Does the pt have substance abuse?: Yes Substance Use and Type: Marijuana - Immunizations Immunizations are current?: Yes - POLST Patient has POLST: No PD ED PE NORMAL - Vitals Vital signs reviewed: Yes - General General: Alert and oriented X 3, Well developed/nourished, Other (seems in pain due to back, anxious and some shaky, and tearful. ) - Neck Neck: Supple, no meningeal sign, No adenopathy - Cardiac Cardiac: RRR, No murmur - Respiratory Respiratory: Clear bilaterally - Derm Derm: Normal color, Warm and dry - Extremities Extremities: No tenderness to palpate, Normal ROM s pain - Neuro Neuro: Alert and oriented X 3, No motor deficit, Normal speech - Psych Psych: No: Normal mood (depressed, tearful and anxious.) Results - Vitals Vitals: Oxygen O2 Source Room air - Labs Labs: Laboratory Tests 09/15/18 09/15/18 09/15/18 22:00 22:00 22:00 WBC 12.1 H RBC 5.10 Hgb 15.2 Hct 45.7 MCV 89.6 MCH 29.8 MCHC 33.2 RDW 13.7 Plt Count 376 MPV 6.9 L Neut # (Auto) 8.4 H Lymph # (Auto) 3.0 Redwood # (Auto) 0.5 Eos # (Auto) 0.1 Baso # (Auto) 0.1 Absolute Nucleated RBC 0.00 Nucleated RBC % 0.0 Sodium 137 Potassium 3.4 L Chloride 104 Carbon Dioxide 21 Anion Gap 12.0 BUN 24 H Creatinine 1.0 Estimated GFR (MDRD) 59 L Glucose 105 H Calcium 9.4 Total Bilirubin 1.2 H AST 16 ALT 24 Alkaline Phosphatase 61 Total Protein 8.1 Albumin 4.6 Globulin 3.5 Albumin/Globulin Ratio 1.3 Lipase 32 TSH 2.36 Salicylates < 6.0 Acetaminophen < 10 L Ethyl Alcohol < 5.0 PD MEDICAL DECISION MAKING - ED course Complexity details: reviewed results, considered differential (chronic depression. Anxiety is worse being out of Xanax for few days. Feeling better with IV meds. She states she is not wanting to hurt herself, has her daughter (Alicia) to take care of, but with some suicidal ideation at times. Does not get counseling currently. I suggest that. Friend is with her, who does express concern about excess med use (which is why she ran out few days ago, gets 42 every 2 weeks, so 3 daily).), d/w patient Departure - Departure Disposition: 01 Home, Self Care Clinical Impression: Anxiety and depression Chronic back pain Qualifiers: Back pain location: low back pain Back pain laterality: unspecified Sciatica presence: unspecified whether sciatica present Qualified Code(s): M54.5 - Low back pain Condition: Stable Record reviewed to determine appropriate education?: Yes Instructions: ED Depression Follow-Up: Destin Verma DO [Primary Care Provider] - Prescriptions: ALPRAZolam [Alprazolam] 0.5 mg PO TID PRN #15 tablet PRN Reason: Anxiety Comments: Continue your usual medications. Seek counselling to help with your depression. Follow up with your PMD in the next few days for further prescription medications. I wrote a prescription for 5 days of your Xanax, to help with your anxiety until you can see your PMD. I think much of your symptoms today were an element of withdrawal/rebound of anxiety, due to running out of meds. Discharge Date/Time: 09/15/18 23:57
[2018-09-15] MEDS ORDERED: KETOROLAC 30 MG/ML VIAL IVP STA (21:46)
[2018-09-15] MEDS ORDERED: LORazepam 2 MG/ML VIAL IVP STA ×2 (21:46→23:22)
[2018-09-15] MEDS ORDERED: SODIUM CHLORIDE 0.9% 1,000 ML IV ONE (21:46)
[2018-09-15] MEDS ORDERED: MORPHINE 10 MG/ML VIAL IVP STA ×2 (21:46→23:22)
[2018-09-15 22:08] LABS: BASOPHILS # (AUTO) 0.1 10^3/uL (0.0-0.1); BASOPHILS % (AUTO) 1.1 %; EOSINOPHILS # (AUTO) 0.1 10^3/uL (0.0-0.7); EOSINOPHILS % (AUTO) 0.6 %; HGB - HEMOGLOBIN 15.2 g/dL (12.0-16.0); LYMPHOCYTES % (AUTO) 24.9 %; MEAN CORPUSCULAR HEMOGLOBIN 29.8 pg (27.0-31.0); MEAN CORPUSCULAR HGB CONC 33.2 g/dL (32.0-36.0); MEAN CORPUSCULAR VOLUME 89.6 fL (81.0-99.0); MEAN PLATELET VOLUME 6.9 fL (7.9-10.8); MONOCYTES # (AUTO) 0.5 10^3/uL (0.0-1.0); MONOCYTES % (AUTO) 4.5 %; NEUTROPHILS # (AUTO) 8.4 10^3/uL (1.5-6.6); NEUTROPHILS % (AUTO) 68.9 %; PLT - PLATELET COUNT 376 10^3/uL (130-450); RED CELL DISTRIBUTION WIDTH 13.7 % (12.0-15.0); WHITE BLOOD COUNT 12.1 x10^3/uL (4.8-10.8)
[2018-09-15 22:24] LABS: ACETAMINOPHEN < 10 ug/mL (10-30); ALBUMIN 4.6 g/dL (3.2-5.5); ALBUMIN/GLOBULIN RATIO 1.3 (1.0-2.2); ALKALINE PHOSPHATASE 61 IU/L (42-121); ALT ALANINE AMINOTRANSFERASE 24 IU/L (10-60); AST ASPARTATE AMINOTRANSFERASE 16 IU/L (10-42); BILIRUBIN,TOTAL 1.2 mg/dL (0.2-1.0); BUN - BLOOD UREA NITROGEN 24 mg/dL (6-20); CALCIUM 9.4 mg/dL (8.5-10.3); CARBON DIOXIDE - CO2 21 mmol/L (21-32); CHLORIDE 104 mmol/L (101-111); GFR - MDRD 59 (>89); GLUCOSE 105 mg/dL (70-100); LIPASE 32 U/L (22-51); SALICYLATE < 6.0 mg/dL; SODIUM 137 mmol/L (135-145); TOTAL PROTEIN 8.1 g/dL (6.7-8.2)
[2018-09-15 23:57] VITALS: BP 114/57
== END 2018-09-15 23:57 | disposition home or self-care (01) ==
LOC: EDUNIT# → ED 20:13
DX: F41.9 Anxiety disorder, unspecified (principal); F32.9 Major depressive disorder, single episode, unspecified; R45.851 Suicidal ideations; M54.5 Low back pain; F17.200 Nicotine dependence, unspecified, uncomplicated
CPT/HCPCS: 36415; 83690; 96361; 96374; 96375; 96376; 99283; 99284; J2060; 80053; 80307; 80320; 80329; 84443; 85025

== ENCOUNTER 2018-11-08 01:24 | Emergency (ER) | payer MEDICARE, MEDICAID ==
[2018-11-08 01:36] VITALS: BP 128/78
[2018-11-08] MEDS ORDERED: LIDOCAINE OINTMENT 5% 35.44 GM TUBE TOP STA (01:41)
[2018-11-08] MEDS ORDERED: KETOROLAC 30 MG/ML VIAL IM STA (01:41)
[2018-11-08] MEDS ORDERED: HYDROcod/ACETAM 5/325 MG TABLET PO STA (01:41)
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
[2018-11-08] MEDS ORDERED: oxyCODONE/ACET 5/325 Prepack 4 PO STA (02:01)
== END 2018-11-08 02:14 | disposition home or self-care (01) ==
LOC: ED 01:24
DX: T23.162A Burn of first degree of back of left hand, initial encounter (principal); T21.12XA Burn of first degree of abdominal wall, initial encounter; T24.112A Burn of first degree of left thigh, initial encounter; T24.111A Burn of first degree of right thigh, initial encounter; T31.0 Burns involving less than 10% of body surface; X10.0XXA Contact with hot drinks, initial encounter; Y93.89 Activity, other specified; Y92.230 Patient room in hospital as the place of occurrence of the external cause; F17.200 Nicotine dependence, unspecified, uncomplicated
CPT/HCPCS: 96372; 99283; A9270

== ENCOUNTER 2018-12-24 10:31 | Emergency (ER) | payer MEDICARE, MEDICAID ==
[2018-12-24 11:06] LABS: BASOPHILS # (AUTO) 0.1 10^3/uL (0.0-0.1); BASOPHILS % (AUTO) 0.5 %; EOSINOPHILS % (AUTO) 0.2 %; HGB - HEMOGLOBIN 15.4 g/dL (12.0-16.0); LYMPHOCYTES # (AUTO) 2.1 10^3/uL (1.5-3.5); LYMPHOCYTES % (AUTO) 21.9 %; MEAN CORPUSCULAR HEMOGLOBIN 30.7 pg (27.0-31.0); MEAN CORPUSCULAR HGB CONC 33.7 g/dL (32.0-36.0); MEAN PLATELET VOLUME 8.5 fL (7.9-10.8); MONOCYTES # (AUTO) 0.5 10^3/uL (0.0-1.0); MONOCYTES % (AUTO) 5.3 %; NEUTROPHILS # (AUTO) 6.9 10^3/uL (1.5-6.6); NEUTROPHILS % (AUTO) 71.8 %; PLT - PLATELET COUNT 322 10^3/uL (130-450); RED BLOOD COUNT 5.02 10^6/uL (4.20-5.40); RED CELL DISTRIBUTION WIDTH 13.4 % (12.0-15.0); WHITE BLOOD COUNT 9.6 x10^3/uL (4.8-10.8)
[2018-12-24 11:23] LABS: ALBUMIN 4.3 g/dL (3.2-5.5); ALBUMIN/GLOBULIN RATIO 1.2 (1.0-2.2); CALCIUM 9.7 mg/dL (8.5-10.3); TOTAL PROTEIN 7.9 g/dL (6.7-8.2)
--- NOTE | 2018-12-24 11:25 | ED Physician Documentation ---
PD HPI NVD - Stated complaint Stated Complaint: VOMITING - Chief complaint Chief Complaint: Abd Pain - History obtained from History obtained from: Patient - History of Present Illness Timing - onset: How many days ago (3) Timing - duration: Days (3) Timing - details: Abrupt onset (onset nausea and vomiting with some loose stool for a day, then improved some but returned to vomiting and upper abd pain for past 2 days. Had not been able to keep down her meds (including pain meds) so consider some withdrawal symptoms as well.) Associated symptoms: Abdominal pain (upper), Loss of appetite. No: Fever, Chest pain, Hematemesis, Melena Contributing factors: No: Sick contact, Bad food, Recent antibiotics Improved by: No: Vomiting Worsened by: Eating. No: Breathing, Palpation Similar symptoms before: Has not had sx before Recently seen: Not recently seen Review of Systems Constitutional: denies: Fever, Chills Nose: denies: Rhinorrhea / runny nose, Congestion Throat: denies: Sore throat Respiratory: denies: Cough GI: reports: Abdominal Pain, Nausea, Vomiting, Diarrhea (3 days ago, but not after that). denies: Constipation, Hematemesis, Bloody / black stool : denies: Dysuria, Frequency Musculoskeletal: reports: Back pain (chronic). 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 : None HEENT: None Psych: Anxiety, Panic attacks, Claustrophobia Musculoskeletal: Osteoarthritis, Chronic back pain Derm: Other - Past Surgical History Past Surgical History: Yes General: Other Ortho: Carpal Tunnel surgery, Spine surgery /DERMATOLOGIST AND DERMATOPATHOLOGIST: Tubal ligation - Present Medications Home Medications: Ambulatory Orders Medication Instructions Recorded Confirmed oxyCODONE [Roxicodone] 10 mg PO QID PRN 01/30/15 01/04/16 Albuterol Sulfate [Proair Hfa 2 puffs INH Q4H PRN 01/04/16 01/04/16 Inhaler] Morphine Sulfate [Ms Contin] 30 mg PO BID 01/04/16 01/04/16 Alprazolam [Xanax] 0.5 mg PO TID PRN 10/27/17 10/27/17 Fluticasone/Salmeterol [Advair 2 puffs INH DAILY 10/27/17 10/27/17 500-50 Diskus] Albuterol 2.5 mg INH Q4H PRN #30 neb 02/24/18 Albuterol Sulfate [Proair Hfa 2 puffs INH Q4H PRN #1 inhaler 02/24/18 Inhaler] Benzonatate [Tessalon Perle] 100 mg PO TID PRN #20 capsule 02/24/18 guaiFENesin/DEXTROMETHORPHAN 10 ml PO Q6H PRN #120 ml 02/24/18 [Robitussin Dm] predniSONE [Deltasone] 60 mg PO DAILY 5 Days #15 tablet 02/24/18 ALPRAZolam [Alprazolam] 0.5 mg PO TID PRN #15 tablet 09/15/18 Lidocaine Ointment 5% [Xylocaine 1 applic TOP QID PRN #1 tube 11/08/18 Ointment 5%] Famotidine 20 mg PO DAILY #20 tablet 12/24/18 Promethazine [Phenergan] 25 mg PO Q6H PRN #15 tab 12/24/18 - Allergies Allergies/Adverse Reactions: Allergies Allergy/AdvReac Type Severity Reaction Status Date / Time Iodinated Contrast Media Allergy Severe Anaphylaxis Verified 09/15/18 20:25 Penicillins Allergy Mild Rash Verified 09/15/18 20:25 - Social History Does the pt smoke?: Yes Smoking Status: Current every day smoker Does the pt drink ETOH?: No Does the pt have substance abuse?: Yes - Immunizations Immunizations are current?: Yes - POLST Patient has POLST: No PD ED PE NORMAL - Vitals Vital signs reviewed: Yes - General General: Alert and oriented X 3, Well developed/nourished - HEENT HEENT: Pharynx benign. No: Moist mucous membranes - Neck Neck: Supple, no meningeal sign, No adenopathy - Cardiac Cardiac: RRR, No murmur - Respiratory Respiratory: Clear bilaterally - Abdomen Abdomen: Normal bowel sounds, Soft, Non distended, No organomegaly, Other (tender epigastric and RUQ area with some guarding, no percussion tenderness. ) - Back Back: No CVA TTP - Derm Derm: Normal color - Extremities Extremities: No tenderness to palpate, Normal ROM s pain, No edema, No calf tenderness / cord - Neuro Neuro: Alert and oriented X 3, No motor deficit, Normal speech Results - Vitals Vitals: Vital Signs - 24 hr 12/24/18 12/24/18 12/24/18 10:35 13:26 14:38 Temperature 36.5 C 36.3 C L Heart Rate 69 58 L 60 Respiratory 18 18 16 Rate Blood Pressure 119/59 L 113/76 122/76 O2 Saturation 97 100 99 Oxygen O2 Source Room air - Labs Labs: Laboratory Tests 12/24/18 12/24/18 11:00 11:00 WBC 9.6 RBC 5.02 Hgb 15.4 Hct 45.7 MCV 91.0 MCH 30.7 MCHC 33.7 RDW 13.4 Plt Count 322 MPV 8.5 Neut # (Auto) 6.9 H Lymph # (Auto) 2.1 [place] # (Auto) 0.5 Eos # (Auto) 0.0 Baso # (Auto) 0.1 Absolute Nucleated RBC 0.00 Nucleated RBC % 0.0 Sodium 143 Potassium 3.3 L Chloride 105 Carbon Dioxide 26 Anion Gap 12.0 BUN 20 Creatinine 1.0 Estimated GFR (MDRD) 59 L Glucose 104 H Calcium 9.7 Total Bilirubin 1.0 AST 16 ALT 16 Alkaline Phosphatase 67 Total Protein 7.9 Albumin 4.3 Globulin 3.6 Albumin/Globulin Ratio 1.2 Lipase 28 - Rads (name of study) RUQ abd u/s Radiology: Prelim report reviewed (normal GB and bile duct. ), See rad report PD MEDICAL DECISION MAKING - ED course Complexity details: re-evaluated patient (improved with meds and fluids. Recheck abd minimally tender, without peritoneal signs. U/S normal and labs okay. ), considered differential (consider gastritis or viral GE initially, now with gastritis and/or some narcotic withdrawal as well (from her chronic meds not taken due to emesis). Gallbladder colic could fit as well. ), d/w patient Departure - Departure Disposition: 01 Home, Self Care Clinical Impression: Nausea and vomiting Qualifiers: Vomiting type: unspecified Vomiting Intractability: intractable Qualified Code(s): R11.2 - Nausea with vomiting, unspecified Gastritis Qualifiers: Gastritis type: other gastritis Chronicity: acute Gastritis bleeding: without bleeding Qualified Code(s): K29.00 - Acute gastritis without bleeding Condition: Stable Record reviewed to determine appropriate education?: Yes Instructions: ED Nausea Vomiting Follow-Up: Destin Verma DO [Primary Care Provider] - Prescriptions: Famotidine 20 mg PO DAILY #20 tablet Promethazine [Phenergan] 25 mg PO Q6H PRN #15 tab PRN Reason: Nausea / Vomiting Comments: There was possibly a small stone in her gallbladder but no signs of inflammation of the gallbladder so that does not sound like the problem. Your blood tests otherwise were good except a slightly low potassium. I presume you may have had a stomach flu or food related vomiting which then led to an irritated stomach and perpetuated the vomiting. Continue usual medications. Use promethazine every 6 hours if needed for nausea. Your stomach will likely be irritated for a week or so and so take an acid reducing medicine famotidine daily for 1 to 2 weeks. Follow-up with your primary care as planned. Return if worse. Discharge Date/Time: 12/24/18 14:45
[2018-12-24] MEDS ORDERED: ONDANSETRON 4 MG/2 ML VIAL IVP STA (11:34)
[2018-12-24] MEDS ORDERED: SODIUM CHLORIDE 0.9% 1,000 ML IV ONE ×2 (11:34→11:36)
[2018-12-24] MEDS ORDERED: KETOROLAC 15 MG/ML VIAL IVP STA (11:35)
[2018-12-24] MEDS ORDERED: HYDROmorphone 2 MG/ML VIAL IVP STA ×2 (11:35→13:18)
[2018-12-24] MEDS ORDERED: FAMOTIDINE 20 MG/2 ML VIAL IVP STA (11:35)
--- NOTE | 2018-12-24 12:58 | Ultrasound Report ---
Reason: upper abd pain and vomiting for 2 days Procedure Date: 12/24/2018 Accession Number: [id number] / [id number] Procedure: US - Abdomen Limited CPT Code: FULL RESULT: EXAM: ABDOMEN ULTRASOUND LIMITED, RUQ EXAM DATE: 12/24/2018 12:00 PM. CLINICAL HISTORY: Upper abd pain and vomiting for 2 days. COMPARISON: None. TECHNIQUE: Real-time scanning was performed with static images obtained. FINDINGS: Liver: The liver is enlarged and diffusely increased echogenicity. No focal lesions. 17.3 cm. Main portal vein flow: Hepatopetal. Gallbladder: Possible stone in the neck of the gallbladder. No gallbladder wall thickening or sonographic Robertson sign. Biliary System: CBD measures 5 mm. No intrahepatic or extrahepatic ductal dilatation. Other: The right kidney measures 10 mm in length. No hydronephrosis or renal calculus. IMPRESSION: 1. Possible stone in the neck of the gallbladder. No secondary signs of acute cholecystitis. 2. Hepatomegaly with hepatic parenchymal disease (likely fatty liver). No focal lesions. RADIA
[2018-12-24] MEDS ORDERED: MORPHINE SULFATE ER 30 MG TABLET PO STA (13:18)
[2018-12-24 14:39] VITALS: BP 122/76
== END 2018-12-24 14:45 | disposition home or self-care (01) ==
LOC: ED 10:31
DX: K29.00 Acute gastritis without bleeding (principal); F17.200 Nicotine dependence, unspecified, uncomplicated
CPT/HCPCS: 36415; 76705; 80053; 83690; 85025; 96361; 96374; 96375; 99284; 99285; A9270; J1170

== ENCOUNTER 2018-12-30 15:31 | Outpatient (CLI) | payer MEDICARE, MEDICAID | END 2018-12-30 15:32 | disposition critical access hospital (66) | LOC: EMS 15:31 | PROVIDERS: ATTEND Surgery | DX: R10.30 Lower abdominal pain, unspecified (principal) | CPT/HCPCS: A0425; A0429 ==

== ENCOUNTER 2018-12-30 15:52 | Emergency (ER) | payer MEDICARE, MEDICAID ==
[2018-12-30 16:15] LABS: BASOPHILS # (AUTO) 0.1 10^3/uL (0.0-0.1); BASOPHILS % (AUTO) 0.8 %; EOSINOPHILS # (AUTO) 0.4 10^3/uL (0.0-0.7); EOSINOPHILS % (AUTO) 4.1 %; HGB - HEMOGLOBIN 11.8 g/dL (12.0-16.0); LYMPHOCYTES # (AUTO) 2.5 10^3/uL (1.5-3.5); LYMPHOCYTES % (AUTO) 23.9 %; MEAN CORPUSCULAR HEMOGLOBIN 30.3 pg (27.0-31.0); MEAN CORPUSCULAR HGB CONC 31.8 g/dL (32.0-36.0); MEAN CORPUSCULAR VOLUME 95.4 fL (81.0-99.0); MEAN PLATELET VOLUME 8.9 fL (7.9-10.8); MONOCYTES # (AUTO) 0.8 10^3/uL (0.0-1.0); MONOCYTES % (AUTO) 8.1 %; NEUTROPHILS # (AUTO) 6.5 10^3/uL (1.5-6.6); NEUTROPHILS % (AUTO) 62.8 %; PLT - PLATELET COUNT 265 10^3/uL (130-450); RED BLOOD COUNT 3.89 10^6/uL (4.20-5.40); RED CELL DISTRIBUTION WIDTH 13.6 % (12.0-15.0); WHITE BLOOD COUNT 10.4 x10^3/uL (4.8-10.8)
[2018-12-30 16:28] LABS: ALBUMIN 3.6 g/dL (3.2-5.5); ALBUMIN/GLOBULIN RATIO 1.3 (1.0-2.2); BILIRUBIN,TOTAL 0.4 mg/dL (0.2-1.0); CALCIUM 8.7 mg/dL (8.5-10.3); TOTAL PROTEIN 6.3 g/dL (6.7-8.2)
[2018-12-30] MEDS ORDERED: HYDROmorphone 1 MG/ML CARPUJECT IVP STA ×2 (19:23→20:24)
[2018-12-30] MEDS ORDERED: ONDANSETRON 4 MG/2 ML VIAL IVP STA (19:23)
[2018-12-30] MEDS ORDERED: SODIUM CHLORIDE 0.9% 1,000 ML IV ONE (19:23)
--- NOTE | 2018-12-30 19:41 | ED Physician Documentation ---
History of Present Illness - Stated complaint Stated Complaint: ABD PAIN - Chief complaint Chief Complaint: Abd Pain - History obtained from History obtained from: Patient, Family - History of Present Illness Timing: Today, How many hours ago (5) Pain level max: 8 Pain level now: 6 - Additonal information Additional information: Patient with right upper quadrant abdominal pain and epigastric pain for the past 4 to 5 hours. Has known gallstones. States took her usual pain meds at home without relief. nothing makes it better. worse with movement and palpation. 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 HEENT: None Psych: Anxiety, Panic attacks, Claustrophobia Musculoskeletal: Osteoarthritis, Chronic back pain Derm: Other - Past Surgical History Past Surgical History: Yes General: Other Ortho: Carpal Tunnel surgery, Spine surgery /FARM LABORER: Tubal ligation - Present Medications Home Medications: Ambulatory Orders Medication Instructions Recorded Confirmed oxyCODONE [Roxicodone] 10 mg PO QID PRN 01/30/15 01/04/16 Albuterol Sulfate [Proair Hfa 2 puffs INH Q4H PRN 01/04/16 01/04/16 Inhaler] Morphine Sulfate [Ms Contin] 30 mg PO BID 01/04/16 01/04/16 Alprazolam [Xanax] 0.5 mg PO TID PRN 10/27/17 10/27/17 Fluticasone/Salmeterol [Advair 2 puffs INH DAILY 10/27/17 10/27/17 500-50 Diskus] Albuterol 2.5 mg INH Q4H PRN #30 neb 02/24/18 Albuterol Sulfate [Proair Hfa 2 puffs INH Q4H PRN #1 inhaler 02/24/18 Inhaler] Benzonatate [Tessalon Perle] 100 mg PO TID PRN #20 capsule 02/24/18 guaiFENesin/DEXTROMETHORPHAN 10 ml PO Q6H PRN #120 ml 02/24/18 [Robitussin Dm] predniSONE [Deltasone] 60 mg PO DAILY 5 Days #15 tablet 02/24/18 ALPRAZolam [Alprazolam] 0.5 mg PO TID PRN #15 tablet 09/15/18 Lidocaine Ointment 5% [Xylocaine 1 applic TOP QID PRN #1 tube 11/08/18 Ointment 5%] Famotidine 20 mg PO DAILY #20 tablet 12/24/18 Promethazine [Phenergan] 25 mg PO Q6H PRN #15 tab 12/24/18 - Allergies Allergies/Adverse Reactions: Allergies Allergy/AdvReac Type Severity Reaction Status Date / Time Iodinated Contrast Media Allergy Severe Anaphylaxis Verified 09/15/18 20:25 Penicillins Allergy Mild Rash Verified 09/15/18 20:25 - Social History Does the pt smoke?: Yes Smoking Status: Current every day smoker Does the pt drink ETOH?: No Does the pt have substance abuse?: Yes - Immunizations Immunizations are current?: Yes - POLST Patient has POLST: No PD ED PE NORMAL - Vitals Vital signs reviewed: Yes - General General: Alert and oriented X 3, No acute distress, Well developed/nourished - HEENT HEENT: Moist mucous membranes - Neck Neck: Supple, no meningeal sign - Cardiac Cardiac: RRR, Strong equal pulses - Respiratory Respiratory: No respiratory distress, Clear bilaterally - Abdomen Abdomen: Soft, Non distended, Other (RUQ TTP, equivocal yanes's sign. o/w normal) - Back Back: No CVA TTP - Derm Derm: Warm and dry - Neuro Neuro: Alert and oriented X 3 - Psych Psych: Normal mood, Normal affect Results - Vitals Vitals: Oxygen O2 Source Room air - Labs Labs: Laboratory Tests 12/30/18 12/30/18 12/30/18 16:00 16:00 19:21 WBC 10.4 RBC 3.89 L Hgb 11.8 L Hct 37.1 MCV 95.4 MCH 30.3 MCHC 31.8 L RDW 13.6 Plt Count 265 MPV 8.9 Neut # (Auto) 6.5 Lymph # (Auto) 2.5 [place] # (Auto) 0.8 Eos # (Auto) 0.4 Baso # (Auto) 0.1 Absolute Nucleated RBC 0.00 Nucleated RBC % 0.0 Sodium 138 Potassium 3.8 Chloride 103 Carbon Dioxide 27 Anion Gap 8.0 BUN 17 Creatinine 1.0 Estimated GFR (MDRD) 59 L Glucose 123 H Calcium 8.7 Total Bilirubin 0.4 AST 17 ALT 18 Alkaline Phosphatase 59 Total Protein 6.3 L Albumin 3.6 Globulin 2.7 Albumin/Globulin Ratio 1.3 Lipase 27 Urine Color LT. YELLOW Urine Clarity HAZY Urine pH 7.0 Ur Specific White 1.015 Urine Protein NEGATIVE Urine Glucose (UA) NEGATIVE Urine Ketones NEGATIVE Urine Occult Blood NEGATIVE Urine Nitrite NEGATIVE Urine Bilirubin NEGATIVE Urine Urobilinogen 0.2 (NORMAL) Ur Leukocyte Esterase TRACE H Urine RBC 0-5 Urine WBC 6-10 H Ur Squamous Epith Cells MANY Squamous H Urine Bacteria Few Ur Microscopic Review INDICATED Urine Culture Comments NOT INDICATED Urine HCG, Qual 12/30/18 19:21 WBC RBC Hgb Hct MCV MCH MCHC RDW Plt Count MPV Neut # (Auto) Lymph # (Auto) [place] # (Auto) Eos # (Auto) Baso # (Auto) Absolute Nucleated RBC Nucleated RBC % Sodium Potassium Chloride Carbon Dioxide Anion Gap BUN Creatinine Estimated GFR (MDRD) Glucose Calcium Total Bilirubin AST ALT Alkaline Phosphatase Total Protein Albumin Globulin Albumin/Globulin Ratio Lipase Urine Color Urine Clarity Urine pH Ur Specific White 1.015 Urine Protein Urine Glucose (UA) Urine Ketones Urine Occult Blood Urine Nitrite Urine Bilirubin Urine Urobilinogen Ur Leukocyte Esterase Urine RBC Urine WBC Ur Squamous Epith Cells Urine Bacteria Ur Microscopic Review Urine Culture Comments Urine HCG, Qual NEGATIVE - Rads (name of study) abd US Radiology: Prelim report reviewed, EMP read contemporaneously, See rad report (Partially contracted gallbladder with 2 mm polyp. No other significant abnormality.) PD MEDICAL DECISION MAKING - ED course Complexity details: reviewed old records, reviewed results, re-evaluated patient, considered differential, d/w patient ED course: 48-year-old female with abdominal pain today. Unclear etiology. Pain improved with Dilaudid. Ultrasound does not show any acute abnormalities. No significant lab abnormalities. Has pain medication for home. Tolerating p.o. without difficulty. Feels mildly better after a GI cocktail. We will have her follow-up with her doctor for further care. Patient counseled regarding signs and symptoms for which I believe and urgent re-evaluation would be necessary. Patient with good understanding of and agreement to plan and is comfortable going home at this time This document was made in part using voice recognition software. While efforts are made to proofread this document, sound alike and grammatical errors may occur. Departure - Departure Disposition: 01 Home, Self Care Clinical Impression: Abdominal pain Qualifiers: Abdominal location: unspecified location Qualified Code(s): R10.9 - Unspecified abdominal pain Condition: Good Instructions: ED Abdominal Pain Unkn Cause Follow-Up: Destin Verma DO [Primary Care Provider] - Within 3 Days Comments: The cause of your pain is unclear today. Your ultrasound does not show any signs of acute cholecystitis. Continue your pain medication at home. Return if you worsen. Discharge Date/Time: 12/30/18 22:30
[2018-12-30 19:50] LABS: BILIRUBIN,URINE NEGATIVE (NEGATIVE); GLUCOSE, URINE (UA) NEGATIVE (NEGATIVE); KETONES,URINE (UA) NEGATIVE (NEGATIVE); LEUKOCYTE ESTERASE, URINE TRACE (NEGATIVE); NITRITE,URINE NEGATIVE (NEGATIVE); OCCULT BLOOD,URINE NEGATIVE (NEGATIVE); PROTEIN,URINE NEGATIVE (NEGATIVE); UROBILINOGEN,URINE 0.2 (NORMAL) E.U./dL (NORMAL)
[2018-12-30 19:52] LABS: CLARITY,URINE HAZY (CLEAR)
[2018-12-30 19:53] LABS: HCG UR QUAL NEGATIVE
[2018-12-30 19:58] LABS: RBC,URINE 0-5 /HPF (0-5); SQUAMOUS EPITHELIAL CELL,UR MANY Squamous (<= Few)
[2018-12-30 19:59] LABS: BACTERIA,URINE Few /HPF (None Seen)
--- NOTE | 2018-12-30 21:20 | Ultrasound Report ---
Reason: RUQ abd pain Procedure Date: 12/30/2018 Accession Number: [id number] / [id number] Procedure: US - Abdomen Limited CPT Code: FULL RESULT: EXAM: ABDOMEN ULTRASOUND LIMITED, RUQ EXAM DATE: 12/30/2018 08:57 PM. CLINICAL HISTORY: RUQ abd pain. COMPARISON: ABDOMEN LIMITED 12/24/2018 12:00 PM. TECHNIQUE: Real-time scanning was performed with static images obtained. FINDINGS: Liver: Normal in size and echotexture. cm. Main portal vein flow: Hepatopetal. Gallbladder: Partially contracted. A polyp noted measuring 2 mm. No sonographic signs of acute cholecystitis. Biliary System: CBD measures 5 mm. No intrahepatic or extrahepatic ductal dilatation. Other: No hydronephrosis in right kidney. IMPRESSION: Partiall contracted gallbladder with a 2 mm polyp. No other significant abnormality. RADIA
[2018-12-30] MEDS ORDERED: MAG HYDROX/AL HYDROX/SIMETH 30 ML UDC PO STA (21:22)
[2018-12-30] MEDS ORDERED: LIDOCAINE VISCOUS 2% 15 ML UDC MM STA (21:22)
[2018-12-30] MEDS ORDERED: SUCRALFATE 1 GM/10 ML UDC PO STA (21:22)
[2018-12-30 21:35] VITALS: BP 124/73
== END 2018-12-30 22:30 | disposition home or self-care (01) ==
LOC: EDUNIT# → ED 15:52
DX: R10.11 Right upper quadrant pain (principal); R10.13 Epigastric pain; K82.4 Cholesterolosis of gallbladder; F17.200 Nicotine dependence, unspecified, uncomplicated
CPT/HCPCS: 36415; 76705; 80053; 81001; 81025; 83690; 85025; 96361; 96374; 96376; 99284; A9270; J1170; 81003; 87086

== ENCOUNTER 2019-01-09 09:20 | Outpatient (CLI) | payer MEDICARE, MEDICAID ==
[2019-01-09] MEDS ORDERED: SINCALIDE 5 MCG VIAL ONE (10:08)
[2019-01-09] MEDS ORDERED: SINCALIDE 1.8 MCG in SODIUM CHLORIDE 0.9% 50 ML IV ONE (12:26)
--- NOTE | 2019-01-09 15:19 | Nuclear Medicine Report ---
Reason: MID ABDOMINAL PAIN Procedure Date: 01/09/2019 Accession Number: [id number] / [id number] Procedure: NM - Hepatobiliary HIDA w/ Rx CPT Code: FULL RESULT: EXAM: HEPATOBILIARY SCAN WITH CCK/KINEVAC ADMINISTRATION EXAM DATE: 01/09/2019 12:23 PM. CLINICAL HISTORY: MID ABDOMINAL PAIN. COMPARISON: ABDOMEN LIMITED 12/30/2018 8:30 PM. TECHNIQUE: Following the intravenous administration of 5 mCi of Tc99m Mebrofenin, a hepatobiliary scan was done centered on the liver and gallbladder in multiple sequential images and projections. Following the intravenous administration of 1.8 mcg of CCK/ Kinevac over the course of approximately 60 minutes, dynamic imaging was done and the gallbladder ejection fraction was calculated. FINDINGS: Normal extraction of tracer from the blood pool indicating normal hepatocellular function. The liver size and shape is grossly within normal limits. There is activity visualized within the bile ducts, gallbladder, and small bowel during the first hour. With CCK administration, the gallbladder demonstrates an effective contraction. The gallbladder ejection fraction is calculated to be 55%, well above the lower limit of normal of 38% for a 60-minute injection. The patient did not report symptoms after CCK administration. Positive for enterogastric bile reflux. IMPRESSION: 1. Patent cystic duct. 2. Patent common bile duct. 3. Negative for acute or chronic cholecystitis. 4. Positive for enterogastric bile reflux. 5. Gallbladder ejection fraction of 55%. TRANA
== END 2019-01-09 09:21 | disposition home or self-care (01) ==
LOC: DI 09:20
PROVIDERS: ATTEND Surgery
DX: K31.89 Other diseases of stomach and duodenum (principal); R10.11 Right upper quadrant pain
CPT/HCPCS: 78227; J7040

== ENCOUNTER 2019-01-22 15:20 | Outpatient (CLI) | payer MEDICARE, MEDICAID | END 2019-01-22 15:21 | disposition critical access hospital (66) | LOC: EMS 15:20 | PROVIDERS: ATTEND Surgery | DX: H53.9 Unspecified visual disturbance (principal) | CPT/HCPCS: A0425; A0429 ==

== ENCOUNTER 2019-01-22 15:42 | Emergency (ER) | payer MEDICARE, MEDICAID ==
[2019-01-22] MEDS ORDERED: LORazepam 2 MG/ML VIAL IVP STA ×2 (15:50→17:44)
--- NOTE | 2019-01-22 15:54 | ED Physician Documentation ---
PD HPI OPHTHO - Stated complaint Stated Complaint: BLURRED VISION - Chief complaint Chief Complaint: Heent - History obtained from History obtained from: Patient, EMS - History of Present Illness Timing - onset: Today (This is a 48-year-old smoker with no history of central neurologic disease who about an hour ago developed an acute problem with her right eye. She sees double if she looks straight or left, but sees single if she is looking to the right. Its associated with some blurry vision in the right eye. If she covers her right eye she is asymptomatic. There is no associated weakness, numbness, or tingling in the face arms or legs except for long-standing numbness in the left leg due to back disease. 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 : None HEENT: None Psych: Anxiety, Panic attacks, Claustrophobia Musculoskeletal: Osteoarthritis, Chronic back pain Derm: Other - Past Surgical History Past Surgical History: Yes General: Other Ortho: Carpal Tunnel surgery, Spine surgery /TECHNICAL TRAINER: Tubal ligation - Present Medications Home Medications: Ambulatory Orders Medication Instructions Recorded Confirmed oxyCODONE [Roxicodone] 10 mg PO QID PRN 01/30/15 01/04/16 Albuterol Sulfate [Proair Hfa 2 puffs INH Q4H PRN 01/04/16 01/04/16 Inhaler] Morphine Sulfate [Ms Contin] 30 mg PO BID 01/04/16 01/04/16 Alprazolam [Xanax] 0.5 mg PO TID PRN 10/27/17 10/27/17 Fluticasone/Salmeterol [Advair 2 puffs INH DAILY 10/27/17 10/27/17 500-50 Diskus] Albuterol 2.5 mg INH Q4H PRN #30 neb 02/24/18 Albuterol Sulfate [Proair Hfa 2 puffs INH Q4H PRN #1 inhaler 02/24/18 Inhaler] Benzonatate [Tessalon Perle] 100 mg PO TID PRN #20 capsule 02/24/18 guaiFENesin/DEXTROMETHORPHAN 10 ml PO Q6H PRN #120 ml 02/24/18 [Robitussin Dm] predniSONE [Deltasone] 60 mg PO DAILY 5 Days #15 tablet 02/24/18 ALPRAZolam [Alprazolam] 0.5 mg PO TID PRN #15 tablet 09/15/18 Lidocaine Ointment 5% [Xylocaine 1 applic TOP QID PRN #1 tube 11/08/18 Ointment 5%] Famotidine 20 mg PO DAILY #20 tablet 12/24/18 Promethazine [Phenergan] 25 mg PO Q6H PRN #15 tab 12/24/18 - Allergies Allergies/Adverse Reactions: Allergies Allergy/AdvReac Type Severity Reaction Status Date / Time Iodinated Contrast Media Allergy Severe Anaphylaxis Verified 01/22/19 15:48 Penicillins Allergy Mild Rash Verified 01/22/19 15:48 - Social History Does the pt smoke?: Yes Smoking Status: Current every day smoker Does the pt drink ETOH?: No Does the pt have substance abuse?: Yes - Family History Family history: reports: Non contributory - Immunizations Immunizations are current?: Yes - POLST Patient has POLST: No PD ED PE NORMAL - Vitals Vital signs reviewed: Yes - General General: Alert and oriented X 3, Other (The pupils are equally round and reactive, she cannot abduct the right eye. She has some nystagmus in the left eye on leftward gaze. I do not appreciate any ptosis or other cranial neuropathies.) - HEENT HEENT: Other - Neck Neck: Supple, no meningeal sign, No bony TTP - Cardiac Cardiac: RRR, No murmur - Respiratory Respiratory: No respiratory distress, Clear bilaterally - Abdomen Abdomen: Normal bowel sounds, Soft, Non tender - Back Back: No CVA TTP, No spinal TTP - Derm Derm: Normal color, Warm and dry - Extremities Extremities: No edema, No calf tenderness / cord - Neuro Neuro: Alert and oriented X 3, No motor deficit, No sensory deficit, Normal speech Results - Vitals Vitals: Vital Signs - 24 hr 01/22/19 01/22/19 15:45 20:14 Temperature 37.1 C 36.6 C Heart Rate 119 H 90 Respiratory 18 12 Rate Blood Pressure 134/87 H 179/86 H O2 Saturation 97 96 Oxygen O2 Source Room air - Labs Labs: Laboratory Tests 01/22/19 01/22/19 15:57 15:57 WBC 12.4 H RBC 5.27 Hgb 15.7 Hct 48.5 H MCV 92.0 MCH 29.8 MCHC 32.4 RDW 13.4 Plt Count 397 MPV 8.5 Neut # (Auto) 8.5 H Lymph # (Auto) 3.0 [place] # (Auto) 0.7 Eos # (Auto) 0.0 Baso # (Auto) 0.1 Absolute Nucleated RBC 0.00 Nucleated RBC % 0.0 Sodium 140 Potassium 3.3 L Chloride 101 Carbon Dioxide 27 Anion Gap 12.0 BUN 27 H Creatinine 1.1 H Estimated GFR (MDRD) 53 L Glucose 124 H Calcium 9.4 Total Bilirubin 1.0 AST 17 ALT 22 Alkaline Phosphatase 69 Total Protein 8.4 H Albumin 4.7 Globulin 3.7 Albumin/Globulin Ratio 1.3 Lipase 32 - Rads (name of study) MRI Brain Radiology: Prelim report reviewed (no intracranial abn, poss sinus dz (pt has no acute sx)) PD MEDICAL DECISION MAKING - ED course ED course: This is a 48-year-old woman who presents with an acute cranial neuropathy versus HELADIO. We will try to get her over to MRI, suspect CT would be insensitive for this syndrome. 48-year-old woman arrives with an acute intra nuclear ophthalmoplegia. Her examination was otherwise normal. Differential included acute multiple sclerosis or strokes or an MRI was done and was negative for both. On reevaluation after the MRI of the abnormal right eye movement had almost comp letely resolved. Follow-up with neurology was advised. Departure - Departure Disposition: 01 Home, Self Care Clinical Impression: HELADIO (internuclear ophthalmoplegia) Qualifiers: Laterality: right Qualified Code(s): H51.21 - Internuclear ophthalmoplegia, right eye Condition: Good Record reviewed to determine appropriate education?: Yes Follow-Up: Dacia Humphrey MD [Physician No Access] - Comments: Follow-up with a neurologist, next available appointment, and your PCP tomorrow as scheduled. Return for new or worsening symptoms. Do not drive today. Your blood pressure was elevated today on check into the emergency department. This does not mean that you have hypertension, it is a common phenomenon to come to the emergency department and have elevated blood pressure. I recommend that you see your primary care physician within the week to have it rechecked when you are feeling better.
[2019-01-22 16:01] LABS: BASOPHILS # (AUTO) 0.1 10^3/uL (0.0-0.1); BASOPHILS % (AUTO) 0.8 %; EOSINOPHILS % (AUTO) 0.2 %; HGB - HEMOGLOBIN 15.7 g/dL (12.0-16.0); LYMPHOCYTES % (AUTO) 23.8 %; MEAN CORPUSCULAR HEMOGLOBIN 29.8 pg (27.0-31.0); MEAN CORPUSCULAR HGB CONC 32.4 g/dL (32.0-36.0); MEAN PLATELET VOLUME 8.5 fL (7.9-10.8); MONOCYTES # (AUTO) 0.7 10^3/uL (0.0-1.0); NEUTROPHILS # (AUTO) 8.5 10^3/uL (1.5-6.6); NEUTROPHILS % (AUTO) 68.7 %; PLT - PLATELET COUNT 397 10^3/uL (130-450); RED BLOOD COUNT 5.27 10^6/uL (4.20-5.40); RED CELL DISTRIBUTION WIDTH 13.4 % (12.0-15.0); WHITE BLOOD COUNT 12.4 x10^3/uL (4.8-10.8)
[2019-01-22 16:12] LABS: ALBUMIN 4.7 g/dL (3.2-5.5); ALBUMIN/GLOBULIN RATIO 1.3 (1.0-2.2); CALCIUM 9.4 mg/dL (8.5-10.3); CREATININE 1.1 mg/dL (0.4-1.0); TOTAL PROTEIN 8.4 g/dL (6.7-8.2)
[2019-01-22] MEDS ORDERED: HYDROmorphone 1 MG/ML CARPUJECT IVP STA (17:57)
--- NOTE | 2019-01-22 20:05 | MRI Report ---
Reason: acute HELADIO Procedure Date: 01/22/2019 Accession Number: [id number] / [id number] Procedure: MRI - Brain W/O CPT Code: FULL RESULT: EXAM: MRI BRAIN AND ORBITS WITHOUT CONTRAST EXAM DATE: 01/22/2019 07:25 PM. CLINICAL HISTORY: 48-year-old with sudden onset double vision and right eye crossing. Evaluate for intracranial pathology. COMPARISON: None. TECHNIQUE: Multiplanar, multisequence T1-weighted and fluid-sensitive MR sequences of the brain and orbits were performed. Sequences optimized for routine evaluation. Other: None. IV Contrast: None. FINDINGS: Brain Volume: Normal for age. Parenchyma/Dura: No acute parenchymal hemorrhage, mass, or midline shift. There is a single focus of FLAIR signal hyperintensity seen involving the subcortical right frontal lobe (series 1001, and shifting). No areas of restricted diffusion seen to suggest acute infarct. No areas of abnormal parenchymal susceptibility artifact seen. Ventricles/Cisterns: No hydrocephalus. No abnormal extra-axial fluid collection or hemorrhage. Orbits: There appears to be disconjugate gaze of the right eye. The intraorbital optic nerves appear symmetric in size and signal intensity. The extraocular muscles appear symmetric in size. No intraorbital mass, inflammatory process, or fluid collection seen. Sella Turcica: The pituitary gland, cavernous sinuses, suprasellar cistern and optic chiasm are unremarkable. IAC: Symmetric and unremarkable. Vasculature: Normal signal flow void is seen in the major arterial structures at the skull base. Sinuses: There is a small to moderate volume frothy material within the right maxillary sinus. There is mild to moderate mucosal thickening of the ethmoid air cells with small volume of layering fluid seen within the sphenoid sinuses. Mastoid air cells and middle ear air cavities appear clear. Bones: No focal pathologic appearing marrow signal changes. Other: None. IMPRESSION: 1. No definite acute intracranial pathology seen; specifically, no acute infarct, acute intracranial hemorrhage, mass, hydrocephalus, or midline shift. 2. There is disconjugate gaze of the right eye. Otherwise no definite intraorbital mass, inflammatory process, or fluid collection seen. 3. Paranasal sinus disease, as detailed above, that may represent acute sinusitis in the appropriate clinical setting. [facility]
[2019-01-22 20:16] VITALS: BP 179/86
== END 2019-01-22 20:29 | disposition home or self-care (01) ==
LOC: EDUNIT# → ED 15:42
DX: H51.21 Internuclear ophthalmoplegia, right eye (principal); R03.0 Elevated blood-pressure reading, without diagnosis of hypertension; F17.200 Nicotine dependence, unspecified, uncomplicated
CPT/HCPCS: 36415; 70551; 80053; 83690; 85025; 99284; J1170; J2060